=== PATIENT | male | born 1995 | race Caucasian/White ===

== ENCOUNTER 2018-10-06 08:16 | Emergency (ER) | payer OTHER ==
[~2018-10-06] VITALS: Ht 177.8 cm; Wt 99.8 kg
[2018-10-06 08:16] VITALS: BP_SYST 131
--- NOTE | 2018-10-06 08:16 | NUR ---
BROUGHT BACK TO BED #8 AND TRIAGED. REPORT GIVEN TO GENA
--- NOTE | 2018-10-06 08:20 | NUR ---
Pt presents to ED c/o left sided CWP nonradiating. Pt denies other significant med hx. Pt has no acute distress noted.Pt reports tx for rash in groin area currently taking antibiotics.
--- NOTE | 2018-10-06 09:00 | NUR ---
ER at bedside examining patient.
[2018-10-06 09:50] VITALS: BP_SYST 127
--- NOTE | 2018-10-06 09:50 | NUR ---
Patient given written and verbal discharge instructions and verbalizes understanding. ER MD discussed with patient the results and treatment provided. Patient in stable condition. ID arm band removed. Rx of Bactrim DS given. Patient educated on pain management and to follow up with PMD. Pain Scale 0. Opportunity for questions provided and answered. Medication side effect fact sheet provided.
== END 2018-10-06 09:50 | disposition home or self-care (01) ==
LOC: SED 08:16
DX: R07.89 Other chest pain (principal); R06.02 Shortness of breath
CPT/HCPCS: 71045; 93005; 99283